=== PATIENT | male | born 1965 | race Caucasian/White ===

== ENCOUNTER 2024-01-20 00:36 | Emergency (ER) | payer BC ==
[2024-01-20 02:46] LABS: BASOPHILS ABSOLUTE AUTO 0.06 K/uL (0.00-0.20); BASOPHILS PERCENT AUTO 0.5 % (0.0-1.0); EOSINOPHILS ABSOLUTE AUTO 0.05 K/uL (0.00-0.45); EOSINOPHILS PERCENT AUTO 0.4 % (0.0-6.0); HEMATOCRIT 42.9 % (42.0-52.0); HEMOGLOBIN 15.1 g/dL (14.0-18.0); IMMATURE GRAN ABSOLUTE AUTO 0.03 K/uL (0.00-0.05); IMMATURE GRAN PERCENT AUTO 0.2 % (0.0-0.4); LYMPHOCYTES ABSOLUTE AUTO 0.98 K/uL (1.00-4.80); LYMPHOCYTES PERCENT AUTO 8.1 % (24.0-44.0); MEAN CORPUSCULAR HEMOGLOBIN 29.6 pg (28.0-32.0); MEAN CORPUSCULAR HGB CONC 35.2 g/dL (32.0-36.0); MEAN CORPUSCULAR VOLUME 84.1 fL (83.0-99.0); MEAN PLATELET VOLUME 10.1 fL (9.4-12.4); MONOCYTES ABSOLUTE AUTO 0.88 K/uL (0.00-0.80); MONOCYTES PERCENT AUTO 7.3 % (0.0-8.0); NEUTROPHILS ABSOLUTE AUTO 10.09 K/uL (1.80-7.70); NEUTROPHILS PERCENT AUTO 83.5 % (41.0-71.0); PLATELET COUNT,PLT 202 K/uL (150-400); WHITE BLOOD CELL COUNT,WBC 12.09 K/uL (3.9-11.3)
[2024-01-20] MEDS: Sodium Chloride 0.9% 10 ML Syringe FLUSH PRN (02:53)
[2024-01-20] MEDS: Sodium Chloride 0.9% 2.5 ML Syringe FLUSH PRN (02:53)
[2024-01-20 03:01] LABS: A/G RATIO 1.1 (0.9-1.6); ALANINE AMINOTRANSFERASE,ALT 25 IU/L (14-63); ALBUMIN 3.9 g/dL (3.4-5.0); ALKALINE PHOSPHATASE 83 U/L (46-116); ASPARTATE AMNIOTRANSFERASE,AST 25 IU/L (15-37); BILIRUBIN TOTAL 0.5 mg/dL (0.2-1.0); BLOOD UREA NITROGEN,BUN 17 mg/dL (7.0-18.0); CALCIUM 8.7 mg/dL (8.5-10.1); CARBON DIOXIDE,CO2 26.8 mmol/L (21.0-32.0); CHLORIDE,CL 103 mmol/L (98-107); CREATININE 0.9 mg/dL (0.8-1.3); EST CRCL DRUG DOSING (CG) 109.54 mL/min; GLUCOSE RANDOM 156 mg/dL (74-106); LIPASE 37 U/L (16-77); PROTEIN TOTAL,TP 7.5 g/dL (6.4-8.2); SODIUM,NA 139 mmol/L (136-148)
[2024-01-20 03:07] LABS: ESTIMATED GFR 100 mL/min (>60)
[2024-01-20] MEDS: Ondansetron 4 MG/2 ML SDV IVPUSH ONE (03:17)
[2024-01-20] MEDS: Morphine 2 MG/ML SYRINGE IVPUSH ONE (03:18)
[2024-01-20] MEDS: Sodium Chloride 0.9% 1,000 ML IV ONE (03:19)
[2024-01-20 04:26] LABS: APPEARANCE,URINE CLEAR; BILIRUBIN,URINE NEGATIVE (NEGATIVE); COLOR,URINE YELLOW; GLUCOSE,URINE NEGATIVE (NEGATIVE); KETONES,URINE TRACE mg/dL (NEGATIVE); LEUKOCYTE ESTERASE,URINE NEGATIVE (NEGATIVE); NITRITE,URINE NEGATIVE (NEGATIVE); OCCULT BLOOD,URINE NEGATIVE (NEGATIVE); PROTEIN,URINE TRACE mg/dL (NEGATIVE)
[2024-01-20 04:40] LABS: BACTERIA,URINE RARE (NEGATIVE); EPITHELIAL CELLS,URINE RARE (NONE-FEW); RBC,URINE 0-1 (0-2/HPF); WBC,URINE 0-2 (0-5/HPF)
== END 2024-01-20 04:52 | disposition home or self-care (01) ==
LOC: MW.ED 00:36
DX: K76.0 Fatty (change of) liver, not elsewhere classified (principal); R10.11 Right upper quadrant pain
CPT/HCPCS: 36415; 71046; 76705; 80053; 81001; 82947; 83690; 84484; 85025; 93005; 96361; 96374; 96375; 99285; J2270; J2405; J3490; J7030; 93010; 99284

== ENCOUNTER 2024-08-05 09:38 | Day surgery (SDC) | payer BC ==
[2024-08-05] MEDS: Lactated Ringers 1,000 ML IV SCH (10:34)
[2024-08-05] MEDS ORDERED: propofoL 500 MG/50 ML 50 ML ONE (10:47)
[2024-08-05] MEDS ORDERED: fentaNYL 100 MCG/2 ML SDV ONE (11:28)
[2024-08-05] MEDS ORDERED: Lactated Ringers 1,000 ML IV SCH (12:00)
== END 2024-08-05 12:55 | disposition home or self-care (01) ==
LOC: MW.SDS 09:38
PROVIDERS: ATTEND Surgery
DX: Z12.11 Encounter for screening for malignant neoplasm of colon (principal); G47.30 Sleep apnea, unspecified
CPT/HCPCS: 45378; J2704; J3010; J7120